=== PATIENT | male | born 1985 | race Caucasian/White ===

== ENCOUNTER 2021-10-12 07:26 | Outpatient (CLI) | payer OTHER, SELFPAY ==
[2021-10-12 08:25] LABS: Cholesterol 238 mg/dL (0-200); HDL Direct 66 mg/dL; Triglycerides 97 mg/dL (<150)
[2021-10-12 08:35] LABS: LDL Cholesterol Direct 129 mg/dL
== END 2021-10-12 07:27 | disposition home or self-care (01) ==
PROVIDERS: PCP Family Medicine; Visit Provider Internal Medicine Cardiovascular Disease
DX: E78.2 Mixed hyperlipidemia (principal)
CPT/HCPCS: 36415; 80061

== ENCOUNTER 2022-01-27 09:01 | Emergency (ER) | payer OTHER, SELFPAY ==
--- NOTE | ~2022-01-27 | XR_ITS ---
EXAMINATION: XR tibia fibula RT 2V DATE: 01/27/2022 09:30 INDICATION: Pain at the proximal right tibia/fibula after jumping while playing kickball one day prio r TECHNIQUE: AP and lateral views of the right tibia and fibula were obtained and overlapping proximal and distal images. COMPARISON: None. FINDINGS: Bone alignment is normal. No fracture. Joint spaces are normal. No right knee or ankle joint effusion . Soft tissues are unremarkable. IMPRESSION: 1. Negative right tibia/fibula radiographs. Reviewed, dictated and finalized at location A.
[2022-01-27 09:08] VITALS: BP 178/110; PULSE 68; RESP 12; TEMP 37.1; O2SAT 100
--- NOTE | 2022-01-27 09:09 | ED.LOWEXIN ---
HPI - Extremity Injury (Lower) General Chief Complaint: Extremity Injury, Lower Stated Complaint: INJURED R KNEE Time Seen by Provider: 01/27/22 09:20 Source: patient and RN notes reviewed Mode of arrival: ambulatory Limitations: no limitations History of Present Illness HPI Narrative: 36-year-old male presents concern for right knee injury, reports he has pain below the knee to the lateral leg. Reports yesterday he fell while playing kickball, landing on the knee. He reports pain is Knee itself but just below and to the lateral side of the knee. He reports he used ibuprofen and placed ice on the area without relief. Reports no pain at rest, pain exacerbated by weightbearing. He denies bruising, swelling, redness, warmth, open skin MD complaint: knee injury Related Data Home Medications Medication Instructions Recorded Confirmed flecainide 150 mg tablet mg 01/27/22 Allergies Allergy/AdvReac Type Severity Reaction Status Date / Time No Known Allergies Allergy Verified 01/27/22 09:09 Review of Systems Review of Systems: CONSTITUTIONAL: Denies malaise, chills, sweats, or fever. SKIN: Denies rash or itching, open skin, laceration, abrasion, redness, warmth, swelling. MUSCULOSKELETAL: Reports right knee pain NEUROLOGIC: Denies numbness, weakness All systems reviewed & are unremarkable except as noted in HPI and below PMFSH Comments At time of signature, agree with nursing past medical, surgical, social and family history. There is no relevant family history pertinent to the presenting complaint Exam Narrative: GENERAL: Well-appearing, well-nourished, and in no acute distress. HEAD: Normocephalic, atraumatic. EYES: PERRLA, conjunctivae clear NECK: Supple. CHEST: Speaks in full sentences. No respiratory distress. HEART: Regular rate and rhythm. Normal and equal peripheral pulses. EXTREMITIES: Right knee, lower leg have normal strength and sensation, grossly normal range of motion. No edema or ecchymosis. 5/5 strength with knee flexion and extension. Normal sensation with sensitivity to light touch and pain. Proximal fibular tenderness. No open wounds, no skin tenting, no devitalized tissue or atrophy, no trophic changes, no obvious deformity, alignment normal, nearby joints and structures intact. Distal pulses palpable and equal bilaterally, skin warm, dry, pink. Capillary refill less than 3 seconds. SKIN: Warm, dry, no rash. NEURO: Alert and oriented x3. PSYCH: Normal mood and affect Course Course Emergency Course: Patient is aware of diagnosis, understands and agrees to treatment plan. Anticipatory guidance given. Patient agrees to follow-up as directed and is aware of reasons to seek care at the emergency department. Portions of this record may have been created with voice recognition software Level of Care: Express Care Visit Vital Signs Vital signs: Vital Signs Temperature 98.7 F 01/27/22 09:08 Pulse Rate 68 01/27/22 09:08 Respiratory Rate 12 01/27/22 09:08 Blood Pressure 178/110 H 01/27/22 09:08 Pulse Oximetry 100 01/27/22 09:08 Oxygen Delivery Room Air 01/27/22 09:08 Temperature 98.7 F 01/27/22 09:08 Pulse Rate 68 01/27/22 09:08 Respiratory Rate 12 01/27/22 09:08 Blood Pressure 178/110 H 01/27/22 09:08 Pulse Oximetry 100 01/27/22 09:08 Oxygen Delivery Room Air 01/27/22 09:08 Reviewed. MDM - Extremity Injury (Lower) MDM Narrative Medical decision making narrative: Patients injury and pain is consistent with musculoskeletal etiology. No signs of neurological or vascular compromise on exam. Compartments and tissues are soft without signs of compartment syndrome. Pain is felt appropriate for further evaluation on an outpatient basis. Imaging Data My impression: Images reviewed, interpreted by radiologist, agree, see report. Radiologist's impression: EXAMINATION: XR tibia fibula RT 2V DATE: 01/27/2022 09:30 INDICATION: Pain at the proximal right ti
[2022-01-27 10:30] VITALS: BP 166/99
== END 2022-01-27 10:30 | disposition home or self-care (01) ==
PROVIDERS: Emergency Provider Nurse Practitioner; PCP Family Medicine
DX: S89.91XA Unspecified injury of right lower leg, initial encounter (principal); W19.XXXA Unspecified fall, initial encounter
CPT/HCPCS: 73590; 99213; G0463